=== PATIENT | male | born 1995 | race Caucasian/White ===

== ENCOUNTER → 2018-01-26 14:20 | Outpatient (CLI) | payer OTHER, MEDICAID, SELFPAY ==
--- NOTE | 2018-01-26 14:21 | DI.RAD.S_ITS ---
PROCEDURE: XR FINGER LT MIN 2V INDICATIONS: Left 5th finger pain TECHNIQUE: AP hand, 2 views of the fifth finger(s) acquired. COMPARISON: [facility], CR, FINGER LT, 07/10/2013, 21:25. [facility], CR, FINGER LT, 07/10/2013, 20:26. FINDINGS: Bones: No new fractures or dislocations. No suspicious bony lesions. Soft tissues: No suspicious soft tissue calcifications. IMPRESSION: Healed fracture distal aspect of fifth proximal phalanx, no new injury found. Dictated by: Sidney Horn M.D. on 01/26/2018 at 14:45 Approved by: Sidney Horn M.D. on 01/26/2018 at 14:45
== END ==
PROVIDERS: Visit Provider Physician Assistant
DX: M79.645 Pain in left finger(s) (principal)
CPT/HCPCS: 73140

== ENCOUNTER 2018-09-29 08:37 | Emergency (ER) | payer OTHER, MEDICAID, SELFPAY ==
[2018-09-29 08:45] VITALS: BP 156/94; PULSE 70; RESP 20; TEMP 36.4; O2SAT 100; BMI 24.3
[2018-09-29] MEDS: ONDANSETRON 4 MG/2 ML INJ IV (08:56)
[2018-09-29] MEDS: SODIUM CHLORIDE 0.9% 1,000 ML 150 ML IV (08:56)
[2018-09-29 09:01] LABS: Add Manual Diff / Slide Review NO; Basophils Absolute Auto 0 /uL (0-100); Basophils Percent Auto 0.6 % (0-2); Eosinophils Absolute Auto 0 /uL (0-450); Eosinophils Percent Auto 0.4 % (2-4); Hematocrit 44.3 % (41-53); Hemoglobin 15.6 g/dL (13.5-17.5); Lymphocytes Absolute Auto 1300 /uL (1100-4500); Lymphocytes Percent Auto 31.7 % (25-40); Mean Corpuscular HGB Conc 35.2 % (30-36); Monocytes Absolute Auto 600 /uL (0-900); Monocytes Percent Auto 13.3 % (3-14); Neutrophils Absolute Auto 2300 /uL (1500-7000); Platelet Count 170 X10^3/uL (150-400); Red Blood Cell Count 5.04 X10^6/uL (4.5-5.9); White Blood Cell Count 4.3 X10^3/uL (4.5-11.0)
[2018-09-29 09:10] LABS: Alanine Aminotransferase 16 IU/L (21-72); Albumin 5.2 g/dL (3.5-5.0); Albumin Globulin Ratio 1.6 (1.0-2.8); Alkaline Phosphatase 52 U/L (38-126); Aspartate Aminotransferase 29 IU/L (17-59); Blood Urea Nitrogen 19 mg/dL (9-20); Calcium 10.1 mg/dL (8.4-10.2); Carbon Dioxide 22 mmol/L (22-32); Chloride 102 mmol/L (98-107); Estimated Glomerular Filt Rate > 60.0 mL/min (>60); Globulin 3.2 g/dL (1.7-4.1); Glucose 110 mg/dL (70-100); HEMOLYSIS 23 (0-50); Lipase 97 U/L (23-300); Potassium 4.3 mmol/L (3.4-5.1); Sodium 140 mmol/L (137-145); Total Protein 8.4 g/dL (6.3-8.2)
[2018-09-29] MEDS: HYDROMORPHONE 1 MG INJ 2 MG IV (09:16)
[2018-09-29] MEDS: KETOROLAC 60 MG/2 ML VIAL 30 MG IV (09:17)
[2018-09-29 09:24] LABS: Amorphous Sediment Urine 1+; Bacteria Urine Many (>30); Ictotest Urine Negative (Negative); Mucus Urine 2+ (Negative); RBC Urine 0-1/HPF (0-5/HPF); Squamous Epithelial Cell Urine 0-1 /HPF (0-5/HPF); WBC Urine 1-5/HPF (0-5/HPF)
[2018-09-29 09:25] LABS: Culture Indicated Urine Specimen Cultured
--- NOTE | 2018-09-29 09:52 | ED.ABDPAIN ---
HPI - Abdominal Pain General Chief Complaint: Abdominal Pain Stated Complaint: stomach pains Time Seen by Provider: 09/29/18 08:59 Source: patient Mode of arrival: ambulatory Limitations: no limitations History of Present Illness HPI narrative: Patient presents the emergency department complaining of upper abdominal pain that has been going on for the last 4-5 weeks. Patient states that he is hungry, but that whenever he tries to eat, he immediately vomits. He has a constant sense of nausea. Patient states he has lost about 40 lb over the last several weeks. Patient states he just feels fatigued and like he is not his normal self. Patient states he was not losing weight or feeling fatigued prior to the pain coming up. Denies any history of pancreatitis or cholelithiasis. No family members with gallbladder issues that he knows of. Patient has no history of peptic ulcer disease. He has not had any ?stomach problems? previously. Patient states that his pain gets worse with eating. Otherwise, it does not really change. Patient states that he has not had any history of any pain like this, even milder, in the past. No urinary symptoms. No bowel movement changes. No fevers or chills. No chest symptoms. No other complaints at this time. Related Data Previous Rx's Medication Instructions Recorded hydrocodone-acetaminophen 1 tab PO Q6H PRN #20 tab 09/29/18 omeprazole magnesium 40 mg PO DAILY #60 tab 09/29/18 ondansetron 4 mg PO QID PRN #20 tab 09/29/18 Allergies Allergy/AdvReac Type Severity Reaction Status Date / Time No Known Drug Allergies Allergy Verified 09/29/18 08:45 Review of Systems Constitutional Denies chills, Reports fatigue, Denies fever(s), Denies lethargy, Reports weakness and Reports weight loss Eyes Denies change in vision, Denies eye discharge, Denies irritation and Denies loss of vision ENT Ears, Nose, Mouth, and Throat: Denies change in voice, Denies neck pain and Denies sore throat Cardiovascular Denies chest pain, Denies irregular heart rhythm, Denies lightheadedness, Denies palpitations, Denies dyspnea, Denies dyspnea on exertion and Denies orthopnea Respiratory Denies cough, Denies dyspnea, Denies dyspnea on exertion and Denies wheezing Gastrointestinal Gastrointestinal: Reports abdominal pain, Denies change in bowel habits, Denies diarrhea, Reports nausea and Reports vomiting Genitourinary Denies hematuria, Denies flank pain, Denies urinary incontinence and Denies urinary urgency Musculoskeletal Denies neck pain Integumentary/Breasts Denies pruritus, Denies erythema, Denies rash and Denies wounds Neurologic Denies confusion, Denies loss of vision and Reports weakness Psychiatric Denies anxiety, Denies confusion, Denies depression, Denies homicidal ideation and Denies suicidal ideation Endocrine Reports fatigue and Denies palpitations Hematologic/Lymphatic Denies easy bruising Allergic/Immunologic Denies wheezing [facility] Medical History Healthy adult (Acute) Surgical History (Updated 09/29/18 @ 09:58 by Jessika Rincon MD) No pertinent past surgical history (Acute) Social History Smoking Status: Current every day smoker Social History Smoking Status: Current every day smoker Exam Initial Vital Signs Initial Vital Signs: Vital Signs Temperature 97.5 F L 09/29/18 08:45 Pulse Rate 70 09/29/18 08:45 Respiratory Rate 20 09/29/18 08:45 Blood Pressure 156/94 H 09/29/18 08:45 Pulse Oximetry 100 09/29/18 08:45 Const General: cooperative and well developed Nutritional Appearance: well nourished Orientation: alert, awake, oriented x3 and not confused Other: Patient is diaphoretic and appears mildly tremulous and in pain. [facility] Head: normocephalic and atraumatic Ears: external ears normal and TM's normal bilaterally Nose: external nose normal and No nasal discharge Face and sinus: sinuses nontender, face symmetric, no sinus tenderness and No dry mucous membranes Mouth: oral mucosae normal and moist mucous membranes Teeth and gingiva: dentition normal Throat: tonsils normal and uvula midline Eyes General: appearance normal, both eyes and all related structures Eyelids: eyelids normal Conjunctivae: conjunctivae normal Sclera: sclerae normal Pupils: PERRL EOM: EOM intact bilaterally Neck Neck: normal visual inspection, trachea midline, No lymphadenopathy, No midline deformity and No JVD Lymphatic: No lymphedema Chest Chest: normal inspection of the chest Resp Effort & Inspection: normal respiratory effort, able to speak in complete sentences, no respiratory distress and no use of accessory muscles Auscultation: clear to auscultation bilaterally, no rales, no rhonchi and no wheezes Cardio Rate: regular rate Rhythm: regular rhythm Heart Sounds: no click, no gallops, no murmurs and no rubs Pulses: normal peripheral pulses GI Inspection: non-distended Palpation: soft, no hepatosplenomegaly, No guarding, No pulsatile mass and No tender Auscultation: normal bowel sounds Other: Patient has voluntary guarding. He has diffuse, severe tenderness in his upper abdomen globally. No rebound. Back/Spine/Pelvis Back: No CVA tenderness Cervical Spine: cervical ROM normal and No pain with cervical ROM Thoracic/Lumbar Spine: thoracic and lumbar spine normal to inspection Skin General: no rashes or lesions noted, No jaundice and No petechiae Other: Mild diaphoresis Neuro General: alert, oriented x3, gait normal and no focal motor deficits Speech: speech normal Extrem General: full ROM, no clubbing, cyanosis or edema, no pedal edema and no calf tenderness Psych Appearance: well kempt Mental Status: mental status grossly normal Attitude: cooperative Thought Content: normal and suicidality Judgment: judgment good Course Course Narrative: This patient appeared to be in quite a bit of pain, and I did order symptomatic treatments for him. He was worked up with labs and CT scan of the abdomen and pelvis. Laboratory studies were unremarkable, including LFTs and lipase. White blood cell count was not elevated. CT scan was essentially this did raise concern for peptic ulcer, as the patient was in severe pain upon arrival in the emergency department, and had had ongoing vomiting with significant loss of weight over the last several weeks. As such, I felt that it was important for him to have expedited gastroenterology follow-up to discuss the possibility of endoscopy. The patient was given IV fluids, Zofran, Protonix, and Dilaudid in the emergency department, and seemed to have the most relief with Protonix. His vomiting did improve. I discussed the findings with the patient, as well as the importance of follow-up. 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 We have contacted the [facility] gastroenterology group, and they have stated that they may be able to expedite an appointment for this urgent case if her for a list sent. I have discussed with the patient that he should contact the clinic tomorrow, as we will fax the paperwork today. Patient is agreeable to this plan. We have discussed the usual indications for return, as well as symptomatic management at home. Orders Ordered: ED Orders 09/29/18 08:22 Complete Blood Count AUTO DIFF Stat Comprehensive Metabolic Panel Stat Lipase Stat 09/29/18 09:07 Ictotest Urine Stat Urine Culture Stat Urine Microscopic Stat 09/29/18 09:56 CT abdomen pelvis w con Stat Discontinued Medications Hydromorphone HCl (Dilaudid) 2 mg IV NOW ONE Stop: 09/29/18 09:12 Last Admin: 09/29/18 09:16 Dose: 2 mg Sodium Chloride (Normal Saline 0.9%) 1,000 mls @ 150 mls/hr IV CONT MICHAEL Last Infusion: 09/29/18 09:23 Dose: 0 mls/hr Infusion: 09/29/18 08:56 Dose: 1,000 mls/hr Admin: 09/29/18 08:56 Dose: 150 mls/hr Ketorolac Tromethamine (Toradol) 30 mg IV NOW ONE Stop: 09/29/18 09:12 Last Admin: 09/29/18 09:17 Dose: 30 mg Morphine Sulfate (Morphine) 9 mg 0.1 mg/kg (9 mg) IV NOW ONE Stop: 09/29/18 10:25 Last Admin: 09/29/18 11:26 Dose: Not Given Ondansetron HCl (Zofran) 4 mg IV NOW ONE Stop: 09/29/18 08:48 Last Admin: 09/29/18 08:56 Dose: 4 mg Pantoprazole Sodium (Protonix) 40 mg IV NOW ONE Stop: 09/29/18 10:11 Last Admin: 09/29/18 10:12 Dose: 40 mg Vital Signs - 8 hr 09/29/18 08:45 09/29/18 10:00 09/29/18 11:00 Temperature 97.5 F L Pulse Rate 70 58 L 59 L Respiratory Rate 20 17 Blood Pressure 156/94 H Blood Pressure [Left Arm] 132/78 125/75 Pulse Oximetry 100 98 97 09/29/18 12:02 Temperature Pulse Rate 58 L Respiratory Rate 18 Blood Pressure Blood Pressure [Left Arm] 128/77 Pulse Oximetry 99 MDM - Abdominal Pain Medical Records Attestation: I reviewed the patient's medical records. Lab Data Attestation: I reviewed the patient's lab results. Result diagrams: 09/29/18 08:22 09/29/18 08:22 Lab Results 09/29/18 09/29/18 09/29/18 Range/Units 08:22 08:22 09:07 WBC 4.3 L (4.5-11.0) X10^3/uL RBC 5.04 (4.5-5.9) X10^6/uL Hgb 15.6 (13.5-17.5) g/dL Hct 44.3 (41-53) % MCV 88.0 (80-100) fL MCH 31.0 (26-34) PG MCHC 35.2 (30-36) % RDW 13.0 (11.6-14.8) % Plt Count 170 (150-400) X10^3/uL Neut % (Auto) 54.0 (50-75) % Lymph % (Auto) 31.7 (25-40) % [place] % (Auto) 13.3 (3-14) % Eos % (Auto) 0.4 L (2-4) % Baso % (Auto) 0.6 (0-2) % Neut # (Auto) 2300 (1756-8494) /uL Lymph # (Auto) 1300 (6661-0045) /uL [place] # (Auto) 600 (0-900) /uL Eos # (Auto) 0 (0-450) /uL Baso # (Auto) 0 (0-100) /uL Sodium 140 (137-145) mmol/L Potassium 4.3 (3.4-5.1) mmol/L Chloride 102 (98-107) mmol/L Carbon Dioxide 22 (22-32) mmol/L BUN 19 (9-20) mg/dL Creatinine 1.00 (0.66-1.25) mg/dL Estimated GFR > 60.0 (>60) mL/min BUN/Creatinine Ratio 19.0 (6-22) Glucose 110 H (70-100) mg/dL Calcium 10.1 (8.4-10.2) mg/dL Total Bilirubin 1.0 (0.2-1.3) mg/dL AST 29 (17-59) IU/L ALT 16 L (21-72) IU/L Alkaline Phosphatase 52 (38-126) U/L Total Protein 8.4 H (6.3-8.2) g/dL Albumin 5.2 H (3.5-5.0) g/dL Globulin 3.2 (1.7-4.1) g/dL Albumin/Globulin Ratio 1.6 (1.0-2.8) Lipase 97 (23-300) U/L Urine Ictotest Negative (Negative) Urine RBC 0-1/hpf (0-5/HPF) Urine WBC 1-5/hpf (0-5/HPF) Ur Squamous Epith Cells 0-1 /hpf (0-5/HPF) Amorphous Sediment 1+ Urine Bacteria Many (>30) H (None) Urine Mucus 2+ H (Negative) Ur Culture Indicated? Specimen cultured Point of care testing: Urine Dip Bedside Urine Glucose Negative Bedside Urine Bilirubin + 1 Bedside Urine Ketone ++ 40 Urine Specific [place] 1.025 Bedside Urine Occult Blood - Negative Bedside Urine pH 6.5 Bedside Urine Protein + 30 Bedside Urine Urobilinogen +/- 1mg Bedside Urine Nitrite - Negative Bedside Urine Leukocytes +/- [address] scan - abdomen: Attestation: I personally reviewed and interpreted this imaging study as follows: Radiologist's impression: PROCEDURE: CT ABDOMEN PELVIS W CON INDICATIONS: severe upper abdominal pain, weight loss, ongoing nausea x 4 weeks TECHNIQUE: After the administration of oral and intravenous contrast, 5 mm thick sections acquired from the diaphragms to the symphysis. 5 mm thick coronal and sagittal reformats were performed. For radiation dose reduction, the following was used: automated exposure control, adjustment of mA and/or kV according to patient size. COMPARISON: None. FINDINGS: Image quality: Excellent. ABDOMEN: Lung bases: Lung bases are clear. Heart size is normal. Solid organs: Liver is normal in size and enhancement. Gallbladder is not inflamed or enlarged. Biliary system is non-dilated. Pancreas enhances normally. Spleen is normal in size and enhancement. No adrenal nodules. Kidneys are normal in size and enhancement, without hydronephrosis. Peritoneum and bowel: Stomach, small bowel, and colon loops are normal in caliber and wall thickness. No free fluid or air. The appendix is well-visualized and normal. No ocular fluid collections are evident. Nodes and vessels: No retroperitoneal or mesenteric adenopathy. Aorta and inferior vena cava are normal in caliber. Miscellaneous: No ventral hernias. PELVIS: Genitourinary: Bladder wall thickness is normal. Miscellaneous: No inguinal hernias or adenopathy. Bones: No suspicious bony lesions. No vertebral body compression fractures. IMPRESSION: 1. No acute abnormality within the abdomen or pelvis. 2. Normal appendix. 3. No bowel obstruction. Dictated by: Daryl Viramontes M.D. on 09/29/2018 at 9:35 Approved by: Daryl Viramontes M.D. on 09/29/2018 at 9:38 Discharge Plan Departure Patient Disposition: Home Clinical Impression: Abdominal pain Qualifiers: Abdominal location: epigastric Qualified Code(s): R10.13 - Epigastric pain Discharge Date/Time: 09/29/18 12:26 Interventions: ED Discharge Assessment Last Done: 09/29/18 12:25 Instructions: DI for Abdominal Pain-Adult, DI for Peptic Ulcer Activity Restrictions/Additional Instructions: Your labs and CT scan looked good. Your symptoms, given the negative workup, are concerning for an ulcer in your stomach. This often will not show up on a CT scan, but can cause severe pain and nausea, such as you are having. As such, your case has been discussed with the gastroenterology specialty clinic in [place]. They will be happy to follow up with you, and although there soonest appointment right now is in early November, they can almost certainly get you a sooner appointment, once our emergency records are faxed to them. In the meantime, please take the stomach medicine as prescribed, and use the pain and nausea medicine, as needed. Avoid any foods that are heavily spicy or very acidic. If you use alcohol or tobacco, please do all you can to eliminate use of these, as they also can cause and worsen ulcers. Prescriptions: New hydrocodone-acetaminophen 5-325 mg tablet 1 tab PO Q6H PRN (Reason: pain) Qty: 20 RF: 0 ondansetron 4 mg tablet,disintegrating 4 mg PO QID PRN (Reason: nausea and vomiting) Qty: 20 RF: 0 omeprazole magnesium 20 mg tablet,delayed release (DR/EC) 40 mg PO DAILY Qty: 60 RF: 0 Referrals: [facility] Gastroenterology [Provider Group]
--- NOTE | 2018-09-29 09:56 | DI.CT.S_ITS ---
PROCEDURE: CT ABDOMEN PELVIS W CON INDICATIONS: severe upper abdominal pain, weight loss, ongoing nausea x 4 weeks TECHNIQUE: After the administration of oral and intravenous contrast, 5 mm thick sections acquired from the diaphragms to the symphysis. 5 mm thick coronal and sagittal reformats were performed. For radiation dose reduction, the following was used: automated exposure control, adjustment of mA and/or kV according to patient size. COMPARISON: None. FINDINGS: Image quality: Excellent. ABDOMEN: Lung bases: Lung bases are clear. Heart size is normal. Solid organs: Liver is normal in size and enhancement. Gallbladder is not inflamed or enlarged. Biliary system is non-dilated. Pancreas enhances normally. Spleen is normal in size and enhancement. No adrenal nodules. Kidneys are normal in size and enhancement, without hydronephrosis. Peritoneum and bowel: Stomach, small bowel, and colon loops are normal in caliber and wall thickness. No free fluid or air. The appendix is well-visualized and normal. No ocular fluid collections are evident. Nodes and vessels: No retroperitoneal or mesenteric adenopathy. Aorta and inferior vena cava are normal in caliber. Miscellaneous: No ventral hernias. PELVIS: Genitourinary: Bladder wall thickness is normal. Miscellaneous: No inguinal hernias or adenopathy. Bones: No suspicious bony lesions. No vertebral body compression fractures. IMPRESSION: 1. No acute abnormality within the abdomen or pelvis. 2. Normal appendix. 3. No bowel obstruction. Dictated by: Daryl Viramontes M.D. on 09/29/2018 at 9:35 Approved by: Daryl Viramontes M.D. on 09/29/2018 at 9:38
[2018-09-29 10:00] VITALS: BP 132/78; PULSE 58; RESP 17; O2SAT 98
[2018-09-29] MEDS: PANTOPRAZOLE 40 MG VIAL IV (10:12)
--- NOTE | 2018-09-29 10:48 | PC.NURSE ---
Patient sitting much more comfortably in bed now, states pain is still there and constant at 6/10 but is much improved. No longer tremorous and diaphoretic.
--- NOTE | 2018-09-29 10:49 | PC.NURSE ---
Patient sitting on edge of bed, diaphoretic and shaking with pain/nausea complaint. States meds have not helped yet.
[2018-09-29 11:00] VITALS: BP 125/75; PULSE 59; O2SAT 97
[2018-09-29 12:02] VITALS: BP 128/77; PULSE 58; RESP 18; O2SAT 99
== END 2018-09-29 12:26 | disposition home or self-care (01) ==
PROVIDERS: Emergency Provider Emergency Medicine
DX: R10.13 Epigastric pain (principal); R11.2 Nausea with vomiting, unspecified; R53.83 Other fatigue
CPT/HCPCS: 36591; 74177; 80053; 81003; 81015; 83690; 85025; 87086; 96374; 96375; 99283; 99285; C9113; J1170; J1885; J2405; Q9967

== ENCOUNTER → 2019-09-18 13:33 | Outpatient (CLI) | payer OTHER, SELFPAY ==
[2019-09-19 19:45] LABS: COVID19 Sendout Not Detected (Not Detect)
== END ==
PROVIDERS: Visit Provider Registered Nurse
DX: Z11.59 Encounter for screening for other viral diseases (principal)
CPT/HCPCS: 87635

== ENCOUNTER → 2024-03-03 14:52 | Outpatient (CLI) | payer SELFPAY ==
[2024-03-03 16:49] LABS: Urine N gonorrhoeae NOT DETECTED
[2024-03-03 16:58] LABS: Urine Chlamydia DETECTED
[2024-03-06 15:16] LABS: HIV 1 & 2 Ab/Ag 4th Gen Combo NEGATIVE (NEGATIVE); Hep C Virus Ab w/Reflex Quant NEGATIVE s/c (NEGATIVE)
[2024-03-07 05:14] LABS: RPR Screen Non Reactive (Non Reactive)
== END ==
PROVIDERS: PCP Family Medicine; Referring Provider Family Medicine; Visit Provider Family Medicine
DX: Z11.3 Encounter for screening for infections with a predominantly sexual mode of transmission (principal)
CPT/HCPCS: 36415; 86592; 86803; 87389; 87491; 87591

== ENCOUNTER 2024-08-28 12:04 | Emergency (ER) | payer SELFPAY ==
[2024-08-28] VITALS (7 sets, daily range): BP systolic 122–141; BP diastolic 75–83; PULSE 49–88; RESP 16; TEMP 36.6; O2SAT 91–100; BMI 29.2
[2024-08-28 12:34] LABS: Add Manual Diff / Slide Review NO; Basophils Absolute Auto 0 /uL (0-100); Basophils Percent Auto 0.7 % (0-2); Eosinophils Absolute Auto 0 /uL (0-450); Eosinophils Percent Auto 0.7 % (2-4); Hematocrit 43.1 % (41-53); Hemoglobin 14.8 g/dL (13.5-17.5); Lymphocytes Absolute Auto 1900 /uL (1100-4500); Lymphocytes Percent Auto 31.8 % (25-40); Mean Corpuscular HGB Conc 34.2 % (30-36); Mean Corpuscular Hemoglobin 30.3 PG (26-34); Mean Corpuscular Volume 88.6 fL (80-100); Monocytes Absolute Auto 500 /uL (0-900); Monocytes Percent Auto 9.2 % (3-14); Neutrophils Absolute Auto 3400 /uL (1500-7000); Neutrophils Percent Auto 57.6 % (50-75); Platelet Count 178 X10^3/uL (150-400); Red Blood Cell Count 4.87 X10^6/uL (4.5-5.9); Red Cell Distribution Width 12.8 % (11.6-14.8); White Blood Cell Count 5.9 X10^3/uL (4.5-11.0)
[2024-08-28 12:43] LABS: Prothrombin Time 10.8 SECONDS (9.4-12.5)
[2024-08-28 12:45] LABS: Alanine Aminotransferase 24 IU/L (<50); Albumin 4.9 g/dL (3.5-5.0); Albumin Globulin Ratio 1.8 (1.0-2.8); Alkaline Phosphatase 35 U/L (38-126); Aspartate Aminotransferase 31 IU/L (17-59); BUN Creatinine Ratio 19.4 (6-22); Bilirubin Total 0.7 mg/dL (0.2-1.3); Blood Urea Nitrogen 20 mg/dL (9-20); Calcium 9.6 mg/dL (8.4-10.2); Carbon Dioxide 25 mmol/L (22-32); Chloride 102 mmol/L (98-107); Estimated Glomerular Filt Rate > 60 mL/min (>60); Globulin 2.8 g/dL (1.7-4.1); Glucose 105 mg/dL (70-100); HEMOLYSIS < 15 (0-50); PTT Partial Thromboplastin Tim 33 SECONDS (25.1-36.5); Potassium 4.2 mmol/L (3.4-5.1); Sodium 137 mmol/L (137-145); Total Protein 7.7 g/dL (6.3-8.2)
--- NOTE | 2024-08-28 12:53 | ED_ITS ---
HPI - GI Bleed General Chief complaint: GI Bleed Stated complaint: abd px, blood in stool. Time Seen by Provider: 08/28/24 12:52 Source: patient Mode of arrival: Ambulatory History of Present Illness HPI Narrative: Patient is a healthy 29-year-old male presenting to day with rectal bleeding. He reports it has been off and on for the last 4 or 5 days. He is having normal bowel movements they are not significantly hard no diarrhea bright red blood also when he wipes. Mom of colon cancer at the age of 50 in 2018. He was never had colonoscopy. Also reports he has been off and on maybe in the past. No nausea no vomiting he is having significant pain. 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 HEENT: Head atraumatic,EOMI, pupils reactive, face symmetric, [moist] mucous membranes CARDIOVASCULAR: Regular rate and rhythm without murmurs, rubs or gallops. RESPIRATORY: Breath sounds equal bilaterally, no wheezes rales or rhonchi. ABDOMEN: Soft, nontender. Normoactive bowel sounds all 4 quadrants. No guarding or rebound. RECTAL: Patient declined EXTREMITIES: Normal range of motion, no clubbing or edema. Neurovascularly intact NEUROLOGICAL: Alert and oriented x4.Normal gait and speech. Cranial nerves II through XII grossly intact. SKIN: Warm, dry, no laceration, no petechiae, no rashes or lesions. Course Orders Ordered: ED Orders 08/28/24 12:23 Complete Blood Count AUTO DIFF Stat Comprehensive Metabolic Panel Stat PTT Partial Thromboplastin Teodoro Stat Prothrombin Time INR Stat Type and Screen Stat 08/28/24 13:23 CT abdomen pelvis w con Stat Discontinued Medications Acetaminophen (Acetaminophen 325 Mg Tablet) 975 mg PO NOW ONE Stop: 08/28/24 13:47 Last Admin: 08/28/24 13:54 Dose: 975 mg Documented By: BOSTON Ondansetron HCl (Ondansetron 4 Mg/2 Ml Inj) 4 mg IV NOW PRN PRN Reason: Nausea And Vomiting Ondansetron HCl (Ondansetron 4 Mg Odt) 4 mg SL NOW PRN PRN Reason: Nausea And Vomiting Pantoprazole Sodium (Pantoprazole 40 Mg Vial) 80 mg IV NOW ONE Stop: 08/28/24 12:16 Last Admin: 08/28/24 13:56 Dose: Not Given Documented By: BOSTON Vital Signs Vital signs: Vital Signs - 8 hr 08/28/24 12:09 08/28/24 12:27 08/28/24 12:27 Temperature 97.8 F Pulse Rate 88 69 Respiratory Rate 16 Blood Pressure 129/83 138/78 Pulse Oximetry 100 99 Oxygen Delivery Method Room Air 08/28/24 12:30 08/28/24 13:00 08/28/24 13:34 Temperature Pulse Rate 66 69 49 L Respiratory Rate Blood Pressure Pulse Oximetry 98 99 91 Oxygen Delivery Method 08/28/24 13:36 08/28/24 13:36 08/28/24 14:00 Temperature Pulse Rate 54 L Respiratory Rate Blood Pressure 141/75 H 122/78 Pulse Oximetry 100 Oxygen Delivery Method 08/28/24 14:00 Temperature Pulse Rate 52 L Respiratory Rate Blood Pressure Pulse Oximetry 98 Oxygen Delivery Method MDM - GI Bleed Lab Data 08/28/24 12:23 08/28/24 12:23 Labs: Lab Results 08/28/24 Range/Units 12:23 WBC 5.9 (4.5-11.0) X10^3/uL RBC 4.87 (4.5-5.9) X10^6/uL Hgb 14.8 (13.5-17.5) g/dL Hct 43.1 (41-53) % MCV 88.6 (80-100) fL MCH 30.3 (26-34) PG MCHC 34.2 (30-36) % RDW 12.8 (11.6-14.8) % Plt Count 178 (150-400) X10^3/uL Neut % (Auto) 57.6 (50-75) % Lymph % (Auto) 31.8 (25-40) % [place] % (Auto) 9.2 (3-14) % Eos % (Auto) 0.7 L (2-4) % Baso % (Auto) 0.7 (0-2) % Neut # (Auto) 3400 (7914-3652) /uL Lymph # (Auto) 1900 (1758-5614) /uL [place] # (Auto) 500 (0-900) /uL Eos # (Auto) 0 (0-450) /uL Baso # (Auto) 0 (0-100) /uL PT 10.8 (9.4-12.5) SECONDS INR 1.0 (0.9-1.3) APTT 33 (25.1-36.5) SECONDS Sodium 137 (137-145) mmol/L Potassium 4.2 (3.4-5.1) mmol/L Chloride 102 (98-107) mmol/L Carbon Dioxide 25 (22-32) mmol/L BUN 20 (9-20) mg/dL Creatinine 1.03 (0.66-1.25) mg/dL Estimated GFR > 60 (>60) mL/min BUN/Creatinine Ratio 19.4 (6-22) Glucose 105 H (70-100) mg/dL Calcium 9.6 (8.4-10.2) mg/dL Total Bilirubin 0.7 (0.2-1.3) mg/dL AST 31 (17-59) IU/L ALT 24 (<50) IU/L Alkaline Phosphatase 35 L (38-126) U/L Total Protein 7.7 (6.3-8.2) g/dL Albumin 4.9 (3.5-5.0) g/dL Globulin 2.8 (1.7-4.1) g/dL Albumin/Globulin Ratio 1.8 (1.0-2.8) Blood Type A Positive Antibody Screen Negative Imaging Data CT scan - abdomen/pelvis: Radiologist's Impression: PROCEDURE: CT ABDOMEN PELVIS W CON INDICATIONS: pain rectal bleeding, mom colon cancer TECHNIQUE: After the administration of intravenous contrast, axial sections acquired from the lung bases to the pubic symphysis. Coronal and sagittal reformats were performed. For radiation dose reduction, the following was used: automated exposure control, adjustment of mA and/or kV according to patient size. COMPARISON: None. FINDINGS: Image quality: Diagnostic. Lower Chest: 4 mm solid nodule in the right lower lobe; this is presumably post infectious in this age group and requires no further follow-up. ABDOMEN: Liver: No solid mass. Gallbladder: No radiopaque gallstones or wall thickening. Biliary ducts: No biliary dilation. Pancreas: No ductal dilation. Spleen: Size is within normal limits. Adrenal Glands: No adrenal nodules. Kidneys and Ureters: No hydronephrosis. No solid mass. No complex renal cystic lesion which requires follow up. Stomach and Bowel: Normal colonic caliber, without significant wall thickening. Normal appendix. No significant diverticular disease. Peritoneum: No abnormal intraperitoneal fluid. No free air. Ventral Wall: No significant ventral hernia. Abdominal Nodes: No retroperitoneal or mesenteric adenopathy by size criteria. Vessels: Aorta and inferior vena cava are normal in size. PELVIS: Pelvic Organs: Unremarkable. Bladder: No bladder wall thickening, accounting for underdistention. Pelvic Nodes: No enlarged lymph nodes. Miscellaneous: No inguinal hernias are seen. Bones: No aggressive osseous abnormality. 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 IMPRESSION: No acute abnormality. 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 Recommend outpatient neuro surgical referral for further management. Dictated by: Saad Pickard M.D. on 08/28/2024 at 13:43 MDM Narrative Medical decision making narrative: Patient healthy 29-year-old male presenting to day with rectal bleeding. Sounds like it has been off and on for last couple of days. Abdomen mildly tender. Patient has significant family history of colon cancer mom in her 50s. PCP record reviewed also reports it back in February he was having some rectal pain that time a rectal exam was done patient declining today. Blood work reviewed hemoglobin 14.8 hematocrit 43.1 no leukocytosis CMP electrolytes stable creatinine 1.0 Bilirubin liver enzymes within normal limits CT reviewed does not show any significant abnormality Long discussion with patient in regards to need for outpatient colonoscopy. He has significant history family colon cancer but also needs rule out of Crohn's disease and ulcerative colitis. Patient was given time here in the ED for pain he did not want anything else Discharge Plan Departure Patient Disposition: Home Clinical Impression: Rectal bleeding Instructions: DI for Rectal Bleeding Activity Restrictions/Additional Instructions: *You have been diagnosed with rectal bleeding *What to do: At this time please get a colonoscopy as soon as possible, discuss with your primary care provider. Your CAT scan and blood work today are overall reassuring. I anticipate that the rectal bleeding will slow down however if it increases in your having multiple bowel movements a day dizzy lightheaded and increasing pain you need to return to the ED *Continue to take medications as directed Tylenol 1000 mg every 6 hours if needed for [id number] pain *Follow up with your primary care provider in 2-3 days or call [phone] *Return to ER if you should have increasing rectal bleeding increasing abdominal pain or any new, worsening or concerning symptoms Referrals: Johnathan Goldman MD [Primary Care Provider] - Stand Alone Forms: Patient Portal/API/Survey
--- NOTE | 2024-08-28 13:23 | DI.CT.S_ITS ---
PROCEDURE: CT ABDOMEN PELVIS W CON INDICATIONS: pain rectal bleeding, mom colon cancer TECHNIQUE: After the administration of intravenous contrast, axial sections acquired from the lung bases to the pubic symphysis. Coronal and sagittal reformats were performed. For radiation dose reduction, the following was used: automated exposure control, adjustment of mA and/or kV according to patient size. COMPARISON: None. FINDINGS: Image quality: Diagnostic. Lower Chest: 4 mm solid nodule in the right lower lobe; this is presumably post infectious in this age group and requires no further follow-up. ABDOMEN: Liver: No solid mass. Gallbladder: No radiopaque gallstones or wall thickening. Biliary ducts: No biliary dilation. Pancreas: No ductal dilation. Spleen: Size is within normal limits. Adrenal Glands: No adrenal nodules. Kidneys and Ureters: No hydronephrosis. No solid mass. No complex renal cystic lesion which requires follow up. Stomach and Bowel: Normal colonic caliber, without significant wall thickening. Normal appendix. No significant diverticular disease. Peritoneum: No abnormal intraperitoneal fluid. No free air. Ventral Wall: No significant ventral hernia. Abdominal Nodes: No retroperitoneal or mesenteric adenopathy by size criteria. Vessels: Aorta and inferior vena cava are normal in size. PELVIS: Pelvic Organs: Unremarkable. Bladder: No bladder wall thickening, accounting for underdistention. Pelvic Nodes: No enlarged lymph nodes. Miscellaneous: No inguinal hernias are seen. Bones: No aggressive osseous abnormality. 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 IMPRESSION: No acute abnormality. 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 Recommend outpatient neuro surgical referral for further management. Dictated by: Saad Pickard M.D. on 08/28/2024 at 13:43 Approved by: Saad Pickard M.D. on 08/28/2024 at 13:44
[2024-08-28] MEDS: ACETAMINOPHEN 325 MG TABLET 975 MG PO (13:54)
== END 2024-08-28 14:16 | disposition home or self-care (01) ==
PROVIDERS: Emergency Provider Emergency Medicine; PCP Family Medicine
DX: K62.5 Hemorrhage of anus and rectum (principal); Z80.0 Family history of malignant neoplasm of digestive organs
CPT/HCPCS: 36415; 74177; 80053; 85025; 85610; 85730; 86850; 86900; 86901; 99283; 99284; Q9967

== ENCOUNTER → 2024-08-31 11:14 | Outpatient (CLI) | payer OTHER, SELFPAY ==
[2024-08-31 12:46] LABS: Erythrocyte Sedimentation Rate 1 MM/HR (0-15)
[2024-08-31 12:49] LABS: C-Reactive Protein Quant < 0.5 mg/dL (<1.0)
[2024-08-31 13:21] LABS: Appearance Urine UA CLEAR; Bilirubin Urine UA NEGATIVE (NEGATIVE); Color Urine UA YELLOW; Glucose Urine UA NEGATIVE (Negative); Ketones Urine UA TRACE (NEGATIVE); Leukocyte Esterase Urine UA NEGATIVE (NEGATIVE); Nitrite Urine UA NEGATIVE (Negative); Occult Blood Urine UA NEGATIVE (Negative); Protein Urine UA NEGATIVE (Negative); Urobilinogen Urine UA 0.2 E.U./dL (0.2)
[2024-08-31 13:50] LABS: Amorphous Sediment Urine 1+; Bacteria Urine Moderate (10-30); Culture Indicated Urine Cult Not Indicated; RBC Urine 0-1/HPF (0-5/HPF); Squamous Epithelial Cell Urine 0-1 /HPF (0-5/HPF); Urine Volume 10mL (spun); WBC Urine 0-1/HPF (0-5/HPF)
[2024-09-04 18:12] LABS: Antimyeloperoxidase Antibodies <0.2 units (0.0-0.9); Antiproteinase 3 Antibodies <0.2 units (0.0-0.9); Cytoplasmic C-ANCA <1:20 titer (Neg:<1:20); Perinuclear P-ANCA <1:20 titer (Neg:<1:20)
[2024-09-05 12:11] LABS: ANA Screen, IFA Positive (.)
== END ==
PROVIDERS: PCP Family Medicine; Referring Provider Family Medicine; Visit Provider Family Medicine
DX: K62.5 Hemorrhage of anus and rectum (principal); K62.89 Other specified diseases of anus and rectum; R30.0 Dysuria
CPT/HCPCS: 36415; 81001; 85651; 86038; 86140; 86256